=== PATIENT | female | born 1980 | race Caucasian/White ===

== ENCOUNTER 2018-03-26 05:58 | Inpatient (IN) | payer OTHER ==
--- NOTE | 2018-03-26 07:08 | HP ---
General Information - General Information Maternal Age: 37 Grav: 2 Para: 1 SAB: 0 IEA: 0 Estimated Due Date: 03/20/18 Determined By: LMP Maternal Blood Type and Rh: B Positive - Results this Serology/RPR Result: Non-Reactive Rubella Result: Immune HBsAg Result: Negative HIV Result: Negative GBS Culture Result: Negative Past Medical History Delivery History: Hx Uncomplicated Vaginal Delivery Pertinent Past Medical History: See Records - depression/ anxiety, migraine, back pain, urinary incontinence Pertinent Past Surgical History: None Pertinent Family History: See Records - depression - Antepartal Records Antepartal Records: Reviewed, Uncomplicated Review of Systems Constitutional: Comfortable - coping well w/ ctx CV Complaint: No Respiratory: Shortness of Breath: No Gastrointestinal: No Nausea/Vomiting, Normal Bowel Movement Genitourinary: Leaking Fluid, No Dysuria, No Bleeding Musculoskeletal: No Epigastric Pain, Contractions Neurological: No Headache, No Visual Changes Movement: Normal Exam Allergies/Adverse Reactions: Allergies amoxicillin Allergy (Verified 03/26/18 06:54) Hives Penicillins Allergy (Verified 03/26/18 06:54) Rash Sulfa (Sulfonamide Antibiotics) Allergy (Verified 03/26/18 06:54) Hives T-98.1, P-73, R-16, BP 134/77, O2- 100% - Measurements Height: 5 ft 8 in Weight: 78.925 kg Weight in lbs: 174.252067 Body Mass Index (BMI): 26.4 Pre- Weight: 62.142 kg Weight Gained This : 37 lbs and 0 ozs - Exam Breast: Breast Exam Deferred CVA: No CVA Tenderness Extremities: No Edema Heart: Normal Rhythm/Heart Sounds HEENT: No Significant Findings Lungs: Clear Bilaterally Rectal: Rectal Exam Deferred Reflexes: DTR 2+ Thyroid: No Thyromegaly - Abdominal Exam Abdomen Exam: Non-Tender, Fundal Height Consistent with Dates - Ultrasound/Biophysical Profile Ultrasound Status: Not Done Targeted Exam Findings See L&D Outpatient Visit Provider Note for Findings: N/A Estimated Weight: 7# Cervical Exam: 5cm Effacement: 100% Station: -1 Presenting Part: Vertex Membrane Status: SROM Amniotic Fluid Evaluation: Gross Rupture Bleeding/Discharge: None EFM Findings - External Monitor Findings Baseline Heart Rate: 125 External Monitor Findings: Accelerations Present, No Pattern of Variable or Late Decelerations, Variability Moderate, Baseline Stable Contractions: Regular, Mild, 45-90 Seconds - 2-3 Assessment/Plan - Assessment 37 year old at 40 6/7 weeks gestation with gross rupture of membranes, clear fluid with no evidence of acidemia, in active labor - Obstetrical Risk Factors Risk Factors Comment: Maternal age 37 - Plan Plan: Admit - Anticipate Vaginal Delivery - Date/Time of Admission Date of Admission: 03/26/18 Time of Admission: 06:21
[2018-03-26 07:49] LABS: ABS Basophils 0.1 10^3/ul (0-0.2); ABS Eosinophils 0.1 10^3/ul (0-0.6); ABS Lymphocytes 2.4 10^3/ul (1.0-4.8); ABS Monocytes 0.7 10^3/ul (0-0.8); ABS Neutrophils 8.5 10^3/ul (1.5-7.7); ABS Nucleated RBC 0 10^3/ul; Eosinophil % 0.5 % (0-6); Hematocrit 35 % (35-47); Lymphocyte % 20.6 % (25-47); Mean Corpuscular HGB Conc 34 g/dl (31-36); Mean Corpuscular Hemoglobin 30 pg (27-31); Mean Corpuscular Volume 88 fL (80-97); Mean Platelet Volume 9.3 um3 (7.4-10.4); Nucleated Red Blood Cells % 0.1; Platelet Count 142 10^3/ul (150-450); Red Blood Count 4.02 10^6/ul (4.00-5.40); Red Cell Distribution Width 14 % (10.5-15); White Blood Count 11.7 10^3/ul (3.5-10.8)
[2018-03-26] MEDS ORDERED: OBEPIDURAL* 250 ML EPIDURAL ONE (07:52)
[2018-03-26] MEDS ORDERED: Phenylephrine IV* 40 MCG/ML 10 ML SYRINGE IV PUSH PRN (08:11)
[2018-03-26] MEDS ORDERED: Famotidine TAB* 20 MG PO PRN (08:11)
[2018-03-26] MEDS ORDERED: EPHEDrine (Pressors)* 50 MG/ML VIAL IV PUSH PRN (08:11)
[2018-03-26] MEDS ORDERED: Sodium Citrate/Citric Acid* 15 ML UDC PO PRN (08:11)
--- NOTE | 2018-03-26 08:18 | PN ---
Progress Note - Progress Note Date of Service: 03/26/18 Note: S: Assuming care of [place] ybarra 37 yo who presented with SROM to clear fluid in labor. Pt s/p CEI placement. Feeling more comfortable. Notes increased shivering and shaking but denies feeling cold O: BP 122/68 HR 68 T 98.4 FHT 130bpm. Moderate variability. +Accels. No decels UCs q 2-4 VE: 6cm/100%/vtx -1 A: IUP at 40-6/7 in active labor No evidence of metabolic acidemia P: Enc rest. Anticipate .
[2018-03-26] MEDS ORDERED: OBEPIDURAL* 250 ML EPIDURAL SCH (09:00)
--- NOTE | 2018-03-26 10:36 | PN ---
Progress Note - Progress Note Date of Service: 03/26/18 Note: S: Pt resting comfortably in bed. O: BP 111/83 HR 60 RR 20 T 99 FHT: 135bpm. Moderate variability. +Accels. No decels UCs q 2-3 VE: 8cm/100%/vtx -1 A: IUP at 40-6/7 in active labor No evidence of metabolic acidemia P: Anticipate trial of pushing soon
[2018-03-26] MEDS ORDERED: Oxytocin in LR* 20 UNITS/1,000 ML BAG IVPB ONE (12:17)
--- NOTE | 2018-03-26 12:30 | PN ---
Progress Note - Progress Note Date of Service: 03/26/18 Note: S: Pt completely comfortable. Changing position regularly with RN assist O: BP 100/50 HR 58 FHT: 135bpm. Moderate variability. +Accels. No decels UCs q 2-3 min VE: Anterior lip/100%/vtx -1 A: IUP at 40-6/7 in active labor No evidence of metabolic acidemia P: Anticipate trial of pushing soon
[2018-03-26] MEDS ORDERED: Acetaminophen TAB* 325 MG PO PRN (13:41)
[2018-03-26] MEDS ORDERED: Glycerin ADULT SUPP PR PRN (13:41)
[2018-03-26] MEDS ORDERED: Witch Hazel PAD* JAR TOPICAL PRN (13:41)
[2018-03-26] MEDS ORDERED: Dibucaine 1% 28.35 GM TUBE PR PRN (13:41)
[2018-03-26] MEDS ORDERED: ceFAZolin 2 GM in NS PREMIX(*) 2 GM/100 ML BAG IVPB ONE (13:43)
--- NOTE | 2018-03-26 13:54 | PROCNOTE ---
[facility] OB: Delivery Note - Delivery A Date of : 03/26/18 Time of : 13:11 Comfort Sex: Male Score 1 Minute: 8 Score 5 Minutes: 9 Gestational Age in Weeks and Days at Delivery: 40 Weeks and 6 Days Delivery Method: Spontaneous Vaginal Labor: Spontaneous Did Patient attempt ?: N/A, No Previous Amniotic Fluid: Clear Estimated Blood Loss: 400 Anesthesia/Analgesia: CEI for Labor Anesthesia Comment: [place] Delivered By: Manju Tran - Nursery Level of Nursery: Regular/Bedside - Perineum Perineal Injury: 1st Degree Perineal Injury Comment: repaired with 3-0 Rapide under local infiltration 1% lido and CEI Perineal Repair: By Delivering Practioner - Events Delivery Events of Note: Manual Removal of Placenta Delivery Events of Note Comment: Bi-lobed placenta. Manual extraction of second lobe. Prophylactic IV abx x 1 dose given - Additional Delivery Notes Additional Delivery Notes: Pt admitted with spontaneous rupture of membranes to clear fluid in labor. Expected progression to complete. Length of labor 9 hours, 27 min. Pushed x 9 min. liveborn male. Slow, controlled delivery of head. OA to LILIA. Shoulders followed easily. vigorous with spontaneous cry. HR>110bpm. Delivered to maternal abdomen. Cord clamped x 2 and cut by FOB when pulsations ceased. Bi- lobed placenta. Manual removal of second lobe. Fundus firm to massage and remained firm with IV pitocin infusing. Plan one dose of IV abx for prophylaxis followed manual extraction of placenta. Repair as above. EBL 400mL. At time of note mother and in stable condition. Planning to breast feed.
[2018-03-26] MEDS ORDERED: Oxytocin in LR* 20 UNITS/1,000 ML BAG IVPB SCH (14:00)
[2018-03-26] MEDS ORDERED: Simethicone TAB* 80 MG TAB.CHEW PO SCH (17:30)
[2018-03-26] MEDS: Docusate CAP* 100 MG PO SCH ×2 (20:14→20:19)
[2018-03-27 07:09] LABS: ABS Basophils 0.1 10^3/ul (0-0.2); ABS Eosinophils 0.1 10^3/ul (0-0.6); ABS Lymphocytes 2.5 10^3/ul (1.0-4.8); ABS Monocytes 0.8 10^3/ul (0-0.8); ABS Neutrophils 8.7 10^3/ul (1.5-7.7); ABS Nucleated RBC 0 10^3/ul; Eosinophil % 0.8 % (0-6); Hematocrit 33 % (35-47); Hemoglobin 11.3 g/dl (12.0-16.0); Lymphocyte % 20.4 % (25-47); Mean Corpuscular HGB Conc 34 g/dl (31-36); Mean Corpuscular Hemoglobin 30 pg (27-31); Mean Corpuscular Volume 88 fL (80-97); Mean Platelet Volume 9.2 um3 (7.4-10.4); Nucleated Red Blood Cells % 0; Platelet Count 141 10^3/ul (150-450); Red Blood Count 3.74 10^6/ul (4.00-5.40); Red Cell Distribution Width 14 % (10.5-15); White Blood Count 12.2 10^3/ul (3.5-10.8)
[2018-03-27] MEDS: BuPROPion XL* 150 MG TAB.XL PO SCH (08:39)
[2018-03-27] MEDS: Ibuprofen TAB* 600 MG PO PRN ×3 (08:46→21:54)
[2018-03-27] MEDS: Docusate CAP* 100 MG PO SCH ×3 (08:46→21:54)
[2018-03-27] MEDS ORDERED: Ferrous Gluconate TAB* 324 MG TAB PO SCH (09:00)
[2018-03-28] MEDS: Ibuprofen TAB* 600 MG PO PRN (04:06)
[2018-03-28] MEDS: Docusate CAP* 100 MG PO SCH (10:02)
[2018-03-28 10:46] VITALS: BP 118/74
[2018-03-28] MEDS: BuPROPion XL* 150 MG TAB.XL PO SCH (14:55)
== END 2018-03-28 15:08 | disposition home or self-care (01) | DRG 767 ==
LOC: MCHOBOUT 05:58 → MCHOB 06:21
PROVIDERS: ADMIT Midwife; ATTEND Midwife
PROC: 10E0XZZ Delivery of Products of Conception, External Approach (ICD-10-PCS; principal; 2018-03-26)
PROC: 10D17Z9 Manual Extraction of Products of Conception, Retained, Via Natural or Artificial Opening (ICD-10-PCS; 2018-03-26)
PROC: 0HQ9XZZ Repair Perineum Skin, External Approach (ICD-10-PCS; 2018-03-26)
DX: O48.0 Post-term pregnancy (principal); O99.344 Other mental disorders complicating childbirth; F41.8 Other specified anxiety disorders; O70.0 First degree perineal laceration during delivery; O34.03 Maternal care for unspecified congenital malformation of uterus, third trimester; Q51.3 Bicornate uterus; Z3A.40 40 weeks gestation of pregnancy; Z37.0 Single live birth
CPT/HCPCS: 36415; 85025; 86850; 86900; 86901; 90686; A9270-GY; J0690

== ENCOUNTER 2018-05-21 12:27 | Emergency (ER) | payer OTHER ==
[2018-05-21] MEDS ORDERED: Ibuprofen TAB* 600 MG PO ONE (13:37)
--- NOTE | 2018-05-21 13:38 | UC ---
FLU HPI - HPI Summary HPI Summary: Pt. is a 37 y.o female who presents to the for flu like symptoms that started yesterday. Pt. c/o fever, chills, nausea, decreased appetite, muscle pain. She denies abd. pain, V/D, urinary sxs, cough, sore throat, neck pain, h/ a. Pt. has no past medical hx. Did get flu shot. Pt. concerned because she has a 2 month old baby at home. Denies recent travels or new exposures. Symptoms are mild in severity. No current modifying factors. - History of Current Complaint Chief Complaint: UCGeneralIllness Stated Complaint: FLU SYMPTOMS Time Seen by Provider: 05/21/18 13:32 Hx Obtained From: Patient Hx Last Menstrual Period: 02/29/16 Pain Intensity: 7 - Allergy/Home Medications Allergies/Adverse Reactions: Allergies Allergy/AdvReac Type Severity Reaction Status Date / Time amoxicillin Allergy Hives Verified 05/21/18 13:27 Penicillins Allergy Rash Verified 05/21/18 13:27 Sulfa (Sulfonamide Allergy Hives Verified 05/21/18 13:27 Antibiotics) Home Medications: Home Medications Ibuprofen TAB* [Motrin TAB* 600 MG] 200 mg PO Q6H PRN 05/21/18 [History Confirmed 05/21/18] Vit 108/Iron/Folic AC [ One Tablet] 1 tab PO DAILY 05/21/18 [ History Confirmed 05/21/18] PMH/Surg Hx/FS Hx/Imm Hx Previously Healthy: Yes - Surgical History Surgical History: Yes Surgery Procedure, Year, and Place: episiiotomy, tonsils - Family History Known Family History: Positive: Diabetes - TYPE 1 Family History: BRAIN CANCER, SKIN CANCER - Social History Occupation: Employed Full-time Lives: With Family Alcohol Use: None Substance Use Type: None Smoking Status (MU): Never Smoked Tobacco - Immunization History Most Recent Influenza Vaccination: 03/28/18 Most Recent Tetanus Shot: UTD Most Recent Pneumonia Vaccination: never Review of Systems Constitutional: Fever, Chills Skin: Negative Eyes: Negative ENT: Sinus Congestion Respiratory: Negative Cardiovascular: Negative Genitourinary: Negative Musculoskeletal: Myalgia Neurological: Negative Is Patient Immunocompromised?: No All Other Systems Reviewed And Are Negative: Yes Physical Exam Triage Information Reviewed: Yes Appearance: Well-Appearing - Pt. sitting on bed in NAD. Appears tired but nontoxic. Vital Signs: Initial Vital Signs Temp 99.5 F 05/21/18 13:22 Pulse 125 05/21/18 13:22 Resp 22 05/21/18 13:22 BP 133/112 05/21/18 13:22 Pulse Ox 98 05/21/18 13:22 Vital Signs Reviewed: Yes Eyes: Positive: Conjunctiva Clear ENT: Positive: Pharyngeal erythema, TMs normal. Negative: Tonsillar swelling, Tonsillar exudate Neck exam: Normal Neck: Positive: Supple, Nontender, No Lymphadenopathy. Negative: Nuchal Rigidity Respiratory: Positive: Lungs clear, Normal breath sounds, No respiratory distress Cardiovascular: Positive: RRR, No Murmur Abdomen Description: Positive: Other: - Abd. is soft with minimal tenderness to the LLQ and suprapubic region. Musculoskeletal Exam: Normal Neurological Exam: Normal Psychological Exam: Normal Skin Exam: Normal Flu Course/Dx - Course Course Of Treatment: Pt. presenting flu like sxs. Low grade fever, HR and BP elevated. Motrin ordered. Will check flu swab. Nontoxic appearing. Suspect viral etiology. Flu is negative. On re-exam VS recheck and fever and tachy persist, will give dose of tylenol. Pt. concerned for other sources of infection. She does not some mild back pain and has mild lower abd. pain on exam. Will check urine. U/A shows trace RBCs but is negative for infection. Advised pt. to rotate between tylenol and motrin for pain and fever as directed. To increase fluids and rest. Close f.u with PCP and return to or go to ER if sxs change or worsen. pt. understands and agrees with plan. - Differential Dx/Diagnosis Differential Diagnosis/HQI/PQRI: Bronchitis, Influenza, Upper Respiratory Infection Provider Diagnoses: Viral syndrome Discharge - Sign-Out/Discharge Documenting (check all that apply): Patient Departure All imaging exams completed and their final reports reviewed: No Studies - Discharge Plan Condition: Good Disposition: HOME Patient Education Materials: Viral Syndrome (ED) Referrals: [facility] [Outside] [facility] [Outside] Additional Instructions: Schedule a follow up appointment with PCP if symptoms persist Increase fluids and rest Tylenol or Motrin for pain as directed Return to or go to ER if symptoms change or worsen - Billing Disposition and Condition Condition: GOOD Disposition: Home
[2018-05-21 14:48] VITALS: BP 102/83
[2018-05-21] MEDS ORDERED: Acetaminophen TAB* 325 MG PO ONE (14:53)
== END 2018-05-21 15:30 | disposition home or self-care (01) ==
LOC: UCEAST 12:27
DX: B34.9 Viral infection, unspecified (principal); Z88.0 Allergy status to penicillin; Z88.2 Allergy status to sulfonamides
CPT/HCPCS: 81003; 99212; A9270-GY; G0463

== ENCOUNTER 2018-11-25 15:26 | Emergency (ER) | payer OTHER ==
[2018-11-25 15:39] VITALS: BP 118/67
--- NOTE | 2018-11-25 15:58 | UC ---
Skin Complaint HPI - HPI Summary HPI Summary: 38 -year-old female with a very tender left breast over the past few days. She is breast-feeding an 8-month-old baby. She states today she knew that she was running a fever, increasing tenderness of the left breast, she expressed breast milk and it was yellowish brown in color, she she states she had a point this afternoon where she felt very shaky and sick and came here to be evaluated. - History of Current Complaint Chief Complaint: UCGeneralIllness Time Seen by Provider: 11/25/18 15:50 Stated Complaint: BLOOD IN BREAST MILK Hx Obtained From: Patient Hx Last Menstrual Period: May 2017 ?: No Onset/Duration: Gradual Onset - Gradual onset over the past 2-3 days. Skin Exposure Onset/Duration: Days Ago Timing: Constant Onset Severity: Mild Current Severity: Severe Pain Intensity: 6 Location: Other - Lateral portion of left breast. Character: Pain, Redness, Painful Aggravating Factor(s): Touch Alleviating Factor(s): Nothing Associated Signs & Symptoms: Positive: Nausea, Shivering, Fever, Chills, Drainage - Patient states her breast milk today was yellowish brown in color., Tenderness, Red Streaks - There is a redness/erythema lateral portion left breast Related History: Other: - Breast-feeding - Allergy/Home Medications Allergies/Adverse Reactions: Allergies Allergy/AdvReac Type Severity Reaction Status Date / Time amoxicillin Allergy Hives Verified 11/25/18 15:39 Penicillins Allergy Rash Verified 11/25/18 15:39 Sulfa (Sulfonamide Allergy Hives Verified 11/25/18 15:39 Antibiotics) PMH/Surg Hx/FS Hx/Imm Hx Previously Healthy: Yes - Surgical History Surgical History: Yes Surgery Procedure, Year, and Place: episiiotomy, tonsils - Family History Known Family History: Positive: Diabetes - TYPE 1 Family History: BRAIN CANCER, SKIN CANCER - Social History Alcohol Use: None Substance Use Type: None Smoking Status (MU): Never Smoked Tobacco - Immunization History Most Recent Influenza Vaccination: 03/28/18 Most Recent Tetanus Shot: UTD Most Recent Pneumonia Vaccination: never Review of Systems All Other Systems Reviewed And Are Negative: Yes Constitutional: Positive: Fever, Chills - Patient states today the fever and chills "hit" her and she felt very shaky. Gastrointestinal: Positive: Nausea Neurological: Positive: Weakness Is Patient Immunocompromised?: No Physical Exam Triage Information Reviewed: Yes Appearance: Well-Appearing, No Pain Distress, Well-Nourished Vital Signs: Initial Vital Signs Temp 102.3 F 11/25/18 15:33 Pulse 123 11/25/18 15:33 Resp 16 11/25/18 15:33 BP 118/67 11/25/18 15:33 Pulse Ox 100 11/25/18 15:33 Vital Signs Reviewed: Yes Eyes: Positive: Conjunctiva Clear ENT: Positive: Normal ENT inspection, Hearing grossly normal, Pharynx normal, TMs normal, Uvula midline Neck: Positive: Supple, Nontender, No Lymphadenopathy Respiratory: Positive: Lungs clear, Normal breath sounds, No respiratory distress, No accessory muscle use Cardiovascular: Positive: No Murmur, Pulses Normal, Brisk Capillary Refill, Tachycardia Abdomen Description: Positive: Nontender, No Organomegaly, Soft Bowel Sounds: Positive: Present Musculoskeletal: Positive: Strength Intact, ROM Intact Neurological: Positive: Alert, Muscle Tone Normal Psychological Exam: Normal Skin: Positive: Other - Left breast with mild erythema laterally with tenderness on palpation and a hard palpable area laterally. Right breast is normal. Course/Dx - Course Course Of Treatment: Patient is fairly comfortable here however she has a tachycardia as well as a fever with some nausea. I believe she has a left breast mastitis and because she does meet septic criteria she needs to go to the emergency room for further evaluation. The patient opted not to go by ambulance but rather her family will drive her to the emergency room. She is stable, awake and alert and nontoxic in appearance. The patient is agreeable to this plan of action. - Diagnoses Provider Diagnosis: Mastitis, left, acute Discharge - Sign-Out/Discharge Documenting (check all that apply): Patient Departure All imaging exams completed and their final reports reviewed: No Studies - Discharge Plan Condition: Fair Disposition: HOME-RECOMMEND TO ED Patient Education Materials: Mastitis (ED) Referrals: Dania Koo MD [Primary Care Provider] - Additional Instructions: After the evaluation by the nurse practitioner, it is recommended that you go to the emergency room for further evaluation of the mastitis where you should receive additional testing that can be completed in the emergency department. It is recommended that you go directly to the emergency department. This evaluation may include blood work or imaging. This testing will be directed and decided by the provider that evaluates you within the emergency department. If pain becomes worse, you feel lightheaded or you develop uncontrolled vomiting, or have any other concerns while you are driving to the emergency room , please bone char puller and call 911. - Billing Disposition and Condition Condition: FAIR Disposition: Home-Recommend to ED
[2018-11-25] MEDS ORDERED: Acetaminophen TAB* 325 MG PO ONE (16:04)
== END 2018-11-25 16:03 | disposition home health service (06) ==
LOC: UCEAST 15:26
DX: N61.0 Mastitis without abscess (principal); R11.0 Nausea; R50.9 Fever, unspecified; Z88.0 Allergy status to penicillin; Z88.2 Allergy status to sulfonamides
CPT/HCPCS: 99212; A9270-GY; G0463

== ENCOUNTER 2018-11-25 16:24 | Emergency (ER) | payer OTHER ==
--- NOTE | 2018-11-25 16:49 | UC ---
- HPI Summary HPI Summary: Patient is a 38 y/o female who presents to the ED c/o fever. 2 days ago she began to have left breast pain, redness, warmth, and swelling. Patient notes yellow-red discharge from her nipple when expressing milk. Pain is rated a 6/10 in severity and is made worse with breast-feeding. Patient denies using a nipple guard. Around 13:30 today she suddenly began to have a fever and chills. Patient was sent here from the for a sepsis work-up. She denies any hx of mastitis. - History of Current Complaint Hx Obtained From: Patient Breast Chief Complaint: Drainage, Left, Inflammation Onset/Duration: Started Days Ago - 2, Worse Since Timing: Constant Breast Pain Aggravating Factors: Breast Feeding Breast Associated Signs/Symptoms: Fever, Redness, Warmth - Allergy/Home Medications Allergies/Adverse Reactions: Allergies Allergy/AdvReac Type Severity Reaction Status Date / Time amoxicillin Allergy Hives Verified 11/25/18 16:30 Penicillins Allergy Rash Verified 11/25/18 16:30 Sulfa (Sulfonamide Allergy Hives Verified 11/25/18 16:30 Antibiotics) PMH/Surg Hx/FS Hx/Imm Hx Previously Healthy: Yes GI/ History: Other - NEGATIVE: mastitis Psychological History: Anxiety - Surgical History Surgical History: Yes Surgery Procedure, Year, and Place: episiiotomy, tonsils - Family History Known Family History: Positive: Diabetes - TYPE 1 Family History: BRAIN CANCER, SKIN CANCER - Social History Alcohol Use: Occasionally Substance Use Type: None Smoking Status (MU): Never Smoked Tobacco - Immunization History Most Recent Influenza Vaccination: 03/28/18 Most Recent Tetanus Shot: UTD Most Recent Pneumonia Vaccination: never Review of Systems All Other Systems Reviewed And Are Negative: Yes Constitutional: Positive: Fever, Chills Skin: Positive: Other - Left breast pain, redness, swelling, warmth, yellow-red discharge Physical Exam - Summary Physical Exam Summary: Appearance: well appearing, no pain distress Skin: warm, dry, reflects adequate perfusion, firm and slightly reddened duct in left lateral brast Head/face: normal Eyes: EOMI, LAUREN ENT: mucous membranes moist Neck: supple, non-tender Respiratory: CTA, breath sounds present Cardiovascular: mildly tachycardic but regular rhythm, pulses symmetrical Abdomen: non-tender, soft Bowel Sounds: present Musculoskeletal: normal, strength/ROM intact Neuro: normal, sensory motor intact, A&Ox3 Triage Information Reviewed: Yes Vital Signs: Initial Vital Signs Temp 103.0 F 11/25/18 16:27 Pulse 143 11/25/18 16:27 Resp 18 11/25/18 16:27 BP 128/80 11/25/18 16:27 Pulse Ox 94 11/25/18 16:27 Vital Signs Reviewed: Yes Breast Pain Course/Dx - Course Course Of Treatment: Nurse's notes reviewed. Patient with simple mastitis caused by . Given IV clindamycin here in due to beta lactam allergy. No MRSA risk factors. IV fluids, Toradol brought patient's fever down. She was doing well and discharged on oral clindamycin. - Differential Diagnoses Differential Diagnosis/HQI/PQRI: Breast Abscess, Breast Mass, Mastitis, Medication Induced - Diagnoses Provider Diagnoses: Mastitis Discharge - Sign-Out/Discharge Documenting (check all that apply): Patient Departure - Discharge Patient Received Moderate/Deep Sedation with Procedure: No - Discharge Plan Condition: Improved Disposition: HOME Prescriptions: Clindamycin Cap(NF) [Clindamycin Cap 300 mg Cap(NF)] 300 mg PO Q6H #28 cap Patient Education Materials: Mastitis (ED) Referrals: Dania Koo MD [Primary Care Provider] - Additional Instructions: Warm compresses to the area. Continue to express milk from the left breast aggressively. Tylenol, ibuprofen as needed for fever. Stay well-hydrated. Probiotic may help. Return if weakness, vomiting, worsening or other concerns. Follow-up with your CASTING OPERATOR HELPER or primary care physician next 1-2 days. - Billing Disposition and Condition Condition: IMPROVED Disposition: Home - Attestation Statements Document Initiated by Scribe: Yes Documenting Scribe: Betzaida Harrison Provider For Whom Scribe is Documenting (Include Credential): Alton Guzman MD Scribe Attestation: Betzaida Rendon scribed for Alton Guzman MD on 11/25/18 at 1824. Scribe Documentation Reviewed: Yes Provider Attestation: The documentation as recorded by the Betzaida arita accurately reflects the service I personally performed and the decisions made by , Alton Guzman MD Status of Scribe Document: Viewed
[2018-11-25] MEDS ORDERED: Clindamycin 600 MG/D5W BAG(*) 600 MG/50 ML BAG IV ONE (16:52)
[2018-11-25] MEDS ORDERED: NS 0.9% 1000 ML** 1,000 ML IV ONE (16:52)
[2018-11-25] MEDS ORDERED: Ketorolac INJ* 30 MG/ML 1 ML VIAL IV PUSH ONE (16:52)
[2018-11-25] MEDS ORDERED: Clindamycin 600 MG IVPREMIX(* 600 MG/50 ML SDV IV ONE (18:00)
[2018-11-25 18:06] VITALS: BP 108/66
== END 2018-11-25 18:06 | disposition home or self-care (01) ==
LOC: ED 16:24
DX: N61.0 Mastitis without abscess (principal); Z88.0 Allergy status to penicillin; Z88.2 Allergy status to sulfonamides
CPT/HCPCS: 87040; 96361; 96374; 96375; 99282; J1885